=== PATIENT | female | born 1995 | race Caucasian/White ===

== ENCOUNTER 2016-11-10 11:36 | Emergency (ER) | payer SELFPAY ==
[~2016-11-10] VITALS: Ht 160 cm; Wt 48.6 kg
[2016-11-10 11:43] VITALS: Ht 160 cm; Wt 48.6 kg
[2016-11-10 12:43] VITALS: BP 97/63; PULSE 51; RESP 18
--- NOTE | 2016-11-10 13:08 | ERD ---
ER Documentation Chief Complaint Date/Time DATE: 11/10/16 TIME: 12:54 Chief Complaint fainting episode while walking to restroom. pt diaphoretic & c/o nausea HPI This is a 20-year-old female who accompanied her boyfriend for an incision and drainage when she felt dizzy while watching the procedure walked away and had a syncopal episode. I have witnessed the syncopal episode when patient hit her occipital head don the ground, she lost consciousness for less than 1 second. Patient states that she has not ate any food all day. She states that she feels nauseous. She had one episode of vomiting. She states her last month her period was a couple weeks ago. She denies any chest pain, shortness of breath. She states that her headache is minimal ROS All systems reviewed and are negative except as per history of present illness. PMhx/Soc Medical and Surgical Hx: pt denies Medical Hx, pt denies Surgical Hx Hx Alcohol Use: Yes Hx Substance Use: Yes (marijuana) Hx Tobacco Use: Yes Smoking Status: Current every day smoker Physical Exam Vitals Vital Signs Date Time Temp Pulse Resp B/P Pulse Ox O2 Delivery O2 Flow Rate FiO2 11/10/16 12:43 51 18 97/63 99 Room Air 11/10/16 11:43 97.5 50 18 99/62 100 Physical Exam GENERAL: well-developed/well-nourished, in no apparent distress, non-toxic appearing HENT: NC/AT, bilateral tympanic membrane is normal with good cone of light, nares patent, oropharynx clear without exudates EYES: Conjunctiva normal, PERRLA, EOMI, no nystagmus noted NECK: Supple, no lymphadenopathy PULM: CTA bilaterally, no rales, rhonchi, or wheezing heard CV: Normal S1S2, RRR, good capillary refill GI: Soft, non-distended, normal bowel sounds, non-tender BACK: No midline tenderness, no masses, No CVAT EXT: No clubbing, cyanosis, or edema NEURO: Alert and orientated to person, place, and time. CN II-IIX intact. Gait and coordination were normal. 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 I have witnessed the syncopal episode when patient hit her occipital head don the ground, she lost consciousness for less than 1 second. It appears the patient had a vasovagal syncopal episode. Patient did have a ground-level fall due to the syncopal episode and I wanted to do a CT on her to rule out intracranial bleeding or skull fracture however patient refused. Patient did have a normal neurological exam, she appears well he did not exhibit any behavioral changes. Patient's urine test was negative. Accu-Chek was within normal limits. I have reassessed the patient after she was given orange juice that she feels a lot better. Patient is neurovascular intact and stable to be discharged home with strict precautions are to the emergency room for any worsening sinus symptoms. Patient understands and agrees with this plan EKG: read and signed off by myself and Dr. Sin Rate/Rhythm: Bradycardia at 59 bpm with marked sinus arrhythmia] QRS, ST, T-waves: [No changes consistent w/ acute ischemia] Impression: [No evidence of ischemia or arrhythmia] Departure Diagnosis: Primary Impression: Vasovagal response Additional Impression: Head injury Condition: Stable Patient Instructions: First Aid: Head Injuries, HEAD INJURY, No Wake-Up (Adult) , Syncope, Vasovagal Referrals: [facility] YOU HAVE RECEIVED A MEDICAL SCREENING EXAM AND THE RESULTS INDICATE THAT YOU DO NOT HAVE A CONDITION THAT REQUIRES URGENT TREATMENT IN THE EMERGENCY DEPARTMENT. FURTHER EVALUATION AND TREATMENT OF YOUR CONDITION CAN WAIT UNTIL YOU ARE SEEN IN YOUR DOCTORS OFFICE WITHIN THE NEXT 1-2 DAYS. IT IS YOUR RESPONSIBILITY TO MAKE AN APPOINTMENT FOR FOLOW-UP CARE. IF YOU HAVE A PRIMARY DOCTOR --you should call your primary doctor and schedule an appointment IF YOU DO NOT HAVE A PRIMARY DOCTOR YOU CAN CALL OUR PHYSICIAN REFERRAL HOTLINE AT IF YOU CAN NOT AFFORD TO SEE A PHYSICIAN YOU CAN CHOSE FROM THE FOLLOWING [facility] [address] [facility] [address] [facility] [address] [facility]. [facility] [address] [facility]. [facility] [address] [facility] [address] Additional Instructions: FOLLOW UP WITH YOUR PRIMARY CARE PHYSICIAN TOMORROW.Return to this facility if you are not improving as expected. Return to this facility if you are not improving as expected. HILARY MATA PA-C Nov 10, 2016 13:04
== END 2016-11-10 13:00 | disposition home or self-care (01) ==
LOC: FTE 12:55
DX: R55 Syncope and collapse (principal); S09.90XA Unspecified injury of head, initial encounter; F17.210 Nicotine dependence, cigarettes, uncomplicated; X58.XXXA Exposure to other specified factors, initial encounter; Y92.9 Unspecified place or not applicable
CPT/HCPCS: 82962; 93005

== ENCOUNTER 2016-12-09 09:37 | Emergency (ER) | payer OTHER ==
[~2016-12-09] VITALS: Wt 50.0 kg
[2016-12-09] MEDS ORDERED: LIDOCAINE 1% (MDV) 20 ML INJ ONE (10:53)
[2016-12-09] MEDS ORDERED: IBUPROFEN 600 MG TAB ONE (10:53)
[2016-12-09] MEDS ORDERED: TRAM50TA2 PO (11:41)
[2016-12-09] MEDS ORDERED: SULF1TAB31 PO (11:41)
--- NOTE | 2016-12-09 11:49 | ERD ---
ER Documentation Chief Complaint Date/Time DATE: 12/09/16 TIME: 11:46 Chief Complaint cyst on genitourinary area HPI This 20-year-old female presents for evaluation of presumed Bartholin gland cyst. She has had a previous excision of the cyst last year although on the other side. Denies fevers, vomiting, additional symptoms ROS All systems reviewed and are negative except as per history of present illness. Medications Home Meds Active Scripts Tramadol HCl (Tramadol HCl) 50 Mg Tablet, 50 MG PO Q4 Y for PAIN, #15 TAB Prov:ROLF ANNE MD 12/09/16 Sulfamethoxazole/Trimethoprim* (Bactrim Ds* Tablet) 1 Each Tablet, 1 TAB PO BID , #14 TAB Prov:ROLF ANNE MD 12/09/16 PMhx/Soc Medical and Surgical Hx: pt denies Medical Hx, pt denies Surgical Hx History of Surgery: No Anesthesia Reaction: No Hx Neurological Disorder: No Hx Respiratory Disorders: No Hx Cardiac Disorders: No Hx Psychiatric Problems: No Hx Miscellaneous Medical Probl: No Hx Alcohol Use: Yes Hx Substance Use: Yes (marijuana) Hx Tobacco Use: Yes Smoking Status: Never smoker Physical Exam Vitals Vital Signs Date Time Temp Pulse Resp B/P Pulse Ox O2 Delivery O2 Flow Rate FiO2 12/09/16 09:39 97.1 88 20 121/84 99 Physical Exam Const: [], [id number] Head: Atraumatic Eyes: Normal Conjunctiva ENT: Normal External Ears, Nose and Mouth. Neck: Full range of motion..~ No meningismus. Resp: Clear to auscultation bilaterally Cardio: Regular rate and rhythm, no murmurs Abd: Soft, non tender, non distended. 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 No induration or streaking or active discharge. Procedures/MDM Patient presents with left inflamed Bartholin gland cyst or abscess. Procedure note-the left pelvic area was prepped with Betadine. 6 cc of lidocaine was used for local infiltration. Proximal 4 cc of purulent material was aspirated from the fluctuant area. #11 scalpel was used to incise the wound. Pus was expressed and portions of the cystic lesion were removed. Wound was packed with approximately 4-5 cm of gauze. Wound was dressed. Patient was discharged home with prescription for Bactrim and tramadol and instructions for wound check in 2-3 days. There is no signs or symptoms to suggest other signs of presenting complaints such as acute abdomen, sepsis, appendicitis, PID or tubo-ovarian abscess. Departure Diagnosis: Primary Impression: Bartholin's gland abscess Condition: Stable Patient Instructions: Bartholin's Cyst (I And D) Additional Instructions: Recheck in 2-3 days for gauze removal. Warm soaks at home. Recheck otherwise for fevers, new or worsening symptoms. ROLF ANNE MD Dec 09, 2016 11:47
== END 2016-12-09 12:23 | disposition home or self-care (01) ==
LOC: FTE 09:37
DX: N75.1 Abscess of Bartholin's gland (principal); Z87.891 Personal history of nicotine dependence

== ENCOUNTER 2018-07-09 18:37 | Emergency (ER) | payer OTHER ==
[~2018-07-09] VITALS: Ht 157.5 cm; Wt 50.7 kg
[~2018-07-09 18:37] MED LIST: SULF1TAB31 PO; TRAM50TA2 PO
[2018-07-09 19:15] VITALS: Ht 157.5 cm; Wt 50.7 kg
[2018-07-09] MEDS ORDERED: LIDOCAINE 4% CR TOP ONE (23:30)
[2018-07-10] MEDS ORDERED: LIDOCAINE 1% (MPF) 5 ML VIAL INJ ONE ×2 (01:00)
[2018-07-10] MEDS ORDERED: NAPR-985 PO (01:46)
[2018-07-10] MEDS ORDERED: SULF1TAB31 PO (01:46)
[2018-07-10] MEDS ORDERED: CEPH-443 PO (01:46)
[2018-07-10] MEDS ORDERED: IBUPROFEN 200 MG TAB PO ONE (02:00)
--- NOTE | 2018-07-10 02:10 | ERD ---
ER Documentation Chief Complaint Chief Complaint Bartholin's cyst L side X 3 days HPI 22-year-old female patient with no significant past medical history presents to ED complaining of a left-sided Bartholin cyst that occurred 3 days ago. Patient reports that she has had a previous incision and drainage due to the same problem. Reports that she just ended her last menstruation. Denies any nausea, vomiting, diarrhea, abdominal pain, chest pain, vaginal bleeding, vaginal discharge, dysuria. ROS All systems reviewed and are negative except as per history of present illness. Medications Home Meds Active Scripts Sulfamethoxazole/Trimethoprim* (Bactrim Ds* Tablet) 1 Each Tablet, 1 TAB PO BID, #14 TAB Prov:ZAC PERES PA-C 07/10/18 Cephalexin* (Keflex*) 500 Mg Capsule, 500 MG PO QID for 5 Days, CAP Prov:ZAC PERES-Naomi 07/10/18 Naproxen* (Naprosyn*) 500 Mg Tablet, 500 MG PO BID PRN for PAIN AND/OR INFLAMMATION, #30 TAB Prov:ZAC PERES PA-C 07/10/18 Tramadol HCl (Tramadol HCl) 50 Mg Tablet, 50 MG PO Q4 PRN for PAIN, #15 TAB Prov:ROLF ANNE MD 12/09/16 Sulfamethoxazole/Trimethoprim* (Bactrim Ds* Tablet) 1 Each Tablet, 1 TAB PO BID, #14 TAB Prov:ROLF ANNE MD 12/09/16 Allergies Allergies: Coded Allergies: No Known Allergy (Unverified , 07/10/18) PMhx/Soc History of Surgery: No Anesthesia Reaction: No Hx Neurological Disorder: No Hx Respiratory Disorders: No Hx Cardiac Disorders: No Hx Psychiatric Problems: No Hx Miscellaneous Medical Probl: No Hx Alcohol Use: Yes Hx Substance Use: Yes (marijuana) Hx Tobacco Use: Yes Smoking Status: Current every day smoker FmHx Family History: No diabetes, No coronary disease Physical Exam Vitals Vital Signs Date Temp Pulse Resp B/P (MAP) Pulse Ox O2 O2 Flow FiO2 Time Delivery Rate 07/09/18 98.4 84 18 122/63 100 19:15 (82) Physical Exam Const: [id number], well-nourished. In no acute distress. Head: Atraumatic, normocephalic Eyes: Normal Conjunctiva without injection. No purulent discharge. ENT: Normal external ear, nose. Moist oropharynx without tonsillar exudates. Non-erythematous pharynx. Uvula midline. No drooling. No trismus. Neck: No cervical midline tenderness. Full range of motion. No meningismus. No cervical lymphadenopathy. No JVD. Resp: Clear to auscultation bilaterally. No wheezing, rhonchi, rales, or crackles. No accessory muscle use. No retractions. Cardio: Regular rate and rhythm. No murmurs, rubs or gallops. Abd: Soft, nontender, non distended. Normal bowel sounds. No palpable masses. No rebound tenderness. No guarding. Negative McBurney's point. Negative psoas sign. Negative obturator sign. Skin: No petechiae or rashes Back: No midline tenderness. No CVA tenderness. Ext: No cyanosis, or edema. Neur: Awake and alert. Normal gait. Normal coordination. Psych: Normal Mood and Affect Results 24 hrs Laboratory Tests Test 07/09/18 23:40 POC Beta HCG, Qualitative NEGATIVE Current Medications Medications Dose Sig/Rima Start Time Status Last (Trade) Ordered Route PRN Stop Time Admin Dose Reason Admin Lidocaine 1 applic ONCE ONCE 07/09/18 DC 07/09/18 (Lmx 4% Plus) TOP 23:30 23:52 07/09/18 23:31 Lidocaine 5 ml ONCE ONCE 07/10/18 DC 07/09/18 (Xylocaine INJ 00:00 23:52 1% (Mpf)) 07/10/18 00:01 Lidocaine 5 ml ONCE ONCE 07/10/18 DC 07/10/18 (Xylocaine INJ 01:00 01:09 1% (Mpf)) 07/10/18 01:01 Ibuprofen 400 mg ONCE ONCE 07/10/18 DC (Motrin) PO 02:00 07/10/18 02:04 Procedures/MDM 22-year-old female patient with no significant past medical history presents to ED complaining of infected left-sided Bartholin cyst. Patient is afebrile and nontoxic-appearing. Patient given ibuprofen 400 mg here in the ED. 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 Incision made at the most fluctuant area of where the Bartholin cyst was located, purulent discharge d rained. Patient felt instant pain relief. Speculum: Normal vaginal mucosa, normal cervical discharge Bimanual: No adnexal masses or tenderness, No CMT Diagnosis: Bartholin's gland infection Discharge medications: Bactrim, Keflex, Naprosyn Follow up with primary care physician in 1-2 days. Instructed patient to return to the ED sooner for any worsening symptoms. Patient's questions were answered. Patient is hemodynamically stable. Patient understood and agreed with discharge plan. Patient discharged stable. Disclaimer: Inadvertent spelling and grammatical errors are likely due to EHR/dictation software use and do not reflect on the overall quality of patient care. Also, please note that the electronic time recorded on this note does not necessarily reflect the actual time of the patient encounter. Departure Diagnosis: Primary Impression: Bartholin's gland infection Condition: Stable Patient Instructions: Bartholin's Cyst (I And D) Referrals: [facility] YOU HAVE RECEIVED A MEDICAL SCREENING EXAM AND THE RESULTS INDICATE THAT YOU DO NOT HAVE A CONDITION THAT REQUIRES URGENT TREATMENT IN THE EMERGENCY DEPARTMENT. FURTHER EVALUATION AND TREATMENT OF YOUR CONDITION CAN WAIT UNTIL YOU ARE SEEN IN YOUR DOCTORS OFFICE WITHIN THE NEXT 1-2 DAYS. IT IS YOUR RESPONSIBILITY TO MAKE AN APPOINTMENT FOR FOLOW-UP CARE. IF YOU HAVE A PRIMARY DOCTOR --you should call your primary doctor and schedule an appointment IF YOU DO NOT HAVE A PRIMARY DOCTOR YOU CAN CALL OUR PHYSICIAN REFERRAL HOTLINE AT IF YOU CAN NOT AFFORD TO SEE A PHYSICIAN YOU CAN CHOSE FROM THE FOLLOWING [facility] [address] [facility]. [facility] [id number] [facility]. [facility] [address] [facility]. [facility] [address] [facility] [address] [facility]. [facility]. [address] [facility] YOU HAVE RECEIVED A MEDICAL SCREENING EXAM AND THE RESULTS INDICATE THAT YOU DO NOT HAVE A CONDITION THAT REQUIRES URGENT TREATMENT IN THE EMERGENCY DEPARTMENT. FURTHER EVALUATION AND TREATMENT OF YOUR CONDITION CAN WAIT UNTIL YOU ARE SEEN IN YOUR DOCTORS OFFICE WITHIN THE NEXT 1-2 DAYS. IT IS YOUR RESPONSIBILITY TO MAKE AN APPOINTMENT FOR FOLOW-UP CARE. IF YOU HAVE A PRIMARY DOCTOR --you should call your primary doctor and schedule and appointment IF YOU DO NOT HAVE A PRIMARY DOCTOR YOU CAN CALL OUR PHYSICIAN REFERRAL HOTLINE AT . IF YOU CAN NOT AFFORD TO SEE A PHYSICIAN YOU CAN CHOSE FROM THE FOLLOWING [facility] INSTITUTIONS: [facility] [address] [place] [address] [facility] [address] [place] [address] [facility] [address] [place] [address] [facility] URGENT CARE/SPECIALTIES SCALE ATTEND[place] [address] [facility] [address] [place] [address] OFFICE FAX CHRISTINE GLASER [address] [place] [address] [address] [facility] [address] [place] [address] [address] [facility] [facility] [address] [facility], [address] [facility] [address] [address] [place] [address] [facility] [address] [place] [address] [address] [facility] [address] - [address] [place] [address] [address] LAND[address] MERA [address] [facility]. [address], [place] [address] [address] [address] [place] [address] [facility] Hours: 8:00 am - 5:00 pm Additional Instructions: Call your primary care doctor TOMORROW for an appointment during the next 2-3 days.See the doctor sooner or return here if your condition worsens before your appointment time. Follow up in 2 days in your clinic for wound check. ZAC PERES PA-C Jul 10, 2018 02:10
[2018-07-10 02:24] VITALS: BP 114/78; PULSE 71; RESP 18
== END 2018-07-10 02:25 | disposition home or self-care (01) ==
LOC: FTE 18:37
DX: N75.0 Cyst of Bartholin's gland (principal); L08.9 Local infection of the skin and subcutaneous tissue, unspecified; F17.210 Nicotine dependence, cigarettes, uncomplicated
CPT/HCPCS: 81025